=== PATIENT | male | born 1960 | race Caucasian/White ===

== ENCOUNTER 2021-08-27 05:59 | Inpatient (IN) ==
[2021-08-27] MEDS ORDERED: MIDAZOLAM 2 MG/2 ML VIAL ONE (06:36)
[2021-08-27] MEDS ORDERED: fentaNYL 100 MCG/2 ML VIAL ONE (06:36)
[2021-08-27] MEDS ORDERED: ROPIVACAINE 0.5% 30 ML VIAL ONE ×2 (06:37→12:32)
[2021-08-27] MEDS ORDERED: LIDOCAINE 2% 5 ML VIAL ONE ×2 (06:37→10:02)
[2021-08-27] MEDS ORDERED: GABAPENTIN 400 MG CAPSULE ONE (07:12)
[2021-08-27] MEDS ORDERED: ACETAMINOPHEN 500 MG TABLET ONE (07:13)
[2021-08-27] MEDS ORDERED: cefTRIAXone 1,000 MG VIAL ONE (07:13)
[2021-08-27] MEDS ORDERED: FAMOTIDINE 20 MG TABLET ONE (07:13)
[2021-08-27] MEDS: ALVIMOPAN 12 MG CAPSULE PO SCH ×3 (08:00→20:42)
[2021-08-27 08:01] LABS: Hematocrit 42.5 VOL% (42.0-52.0); Hemoglobin 14.6 GM/DL (14.0-18.0); Mean Corpuscular HGB Conc 34.4 GM/DL (32-36); Mean Corpuscular Volume 83.5 FL (87-102); Mean Platelet Volume 10.2 FL (9.6-12.0); Platelet Count 172 T/CUMM (130-400); Red Blood Count 5.09 MC/CUMM (3.8-5.5)
[2021-08-27 08:02] LABS: Basophils # 0.1 10*3/uL (0.0-0.2); Basophils % 0.8 % (0.0-0.8); Eosinophils # 0.2 10*3/uL (0.0-0.87); Eosinophils % 2.5 % (0.00-10.9); Immature Granulocytes % 0.3 %; Immature Granulocytes Absolute 0.03 #; Lymphocytes # 2.6 10*3/uL (1.4-4.0); Neutrophils % 59.4 % (38.7-73.9)
[2021-08-27 08:03] LABS: Albumin 3.6 G/DL (3.4-5.0); Bilirubin,Total 0.7 MG/DL (0.20-1.00); Calcium 9.3 MG/DL (8.5-10.1); Total Protein 7.3 G/DL (6.4-8.2)
[2021-08-27] MEDS ORDERED: GABAPENTIN 400 MG CAPSULE PO ONE (08:36)
[2021-08-27] MEDS ORDERED: FAMOTIDINE 20 MG TABLET PO ONE (08:36)
[2021-08-27] MEDS ORDERED: ACETAMINOPHEN 500 MG TABLET PO ONE (08:36)
[2021-08-27] MEDS ORDERED: LACTATED RINGERS 1,000 ML IV SCH (09:00)
[2021-08-27] MEDS ORDERED: PHENYLEPHRINE 10 MG/1 ML VIAL IV ONE (09:06)
[2021-08-27] MEDS ORDERED: GLYCOPYRROLATE 0.4 MG/2 ML VIAL ONE (10:02)
[2021-08-27] MEDS ORDERED: propofoL 200 MG/20 ML VIAL IV ONE (10:02)
[2021-08-27] MEDS ORDERED: DEXAMETHASONE 4 MG/1 ML VIAL ONE ×2 (10:02)
[2021-08-27] MEDS ORDERED: SUCCINYLCHOLINE 200 MG/10 ML VIAL ONE (10:02)
[2021-08-27] MEDS ORDERED: ONDANSETRON 4 MG/2 ML VIAL ONE (10:02)
[2021-08-27] MEDS ORDERED: SODIUM CHLORIDE 0.9% 100 ML IV ONE ×2 (10:02)
[2021-08-27] MEDS ORDERED: ROCURONIUM 50 MG/5 ML VIAL IV ONE (10:02)
[2021-08-27 10:10] LABS: Bilirubin,Urine Negative (Negative); Blood, Urine Moderate mg/dL (Negative); Glucose,Urine (UA) Negative (Negative); Ketones,Urine Negative (Negative); Mucus,Urine Occasional /LPF (Occasional); Nitrite,Urine Negative (Negative); Protein,Urine Negative; RBC,Urine 20 /HPF (0-4); Urine Appearance CLEAR (Clear); Urine Color Yellow (Yellow); Urine Specific Gravity 1.014 (1.001-1.035); Urine Urobilinogen < 2.0 EU/DL (0.2-1.0)
[2021-08-27] MEDS ORDERED: DESFLURANE 1 UNIT/15 MINUTE INH ONE ×2 (10:33→13:22)
[2021-08-27] MEDS ORDERED: SEVOFLURANE 1 UNIT/15 MINUTE INH ONE (10:33)
[2021-08-27] MEDS ORDERED: LACTATED RINGERS 1,000 ML IV ONE (10:40)
[2021-08-27] MEDS ORDERED: SUGAMMADEX 200 MG/2 ML VIAL IV ONE (12:40)
[2021-08-27] MEDS ORDERED: diphenhydrAMINE 50 MG/1 ML VIAL IV PRN ×2 (12:44→13:18)
[2021-08-27] MEDS ORDERED: PROMETHAZINE 25 MG/1 ML VIAL IM PRN (12:44)
[2021-08-27] MEDS ORDERED: MAGNESIUM HYDROXIDE SUSP 30 ML UDCUP PO PRN (12:44)
[2021-08-27] MEDS ORDERED: LACTULOSE 20 GM/30 ML UDCUP PO PRN (12:44)
[2021-08-27] MEDS ORDERED: ONDANSETRON 4 MG/2 ML VIAL IV PRN ×2 (12:44→13:18)
[2021-08-27] MEDS ORDERED: HYDROmorphone 2 MG/1 ML VIAL IV PRN ×2 (12:44→13:18)
[2021-08-27] MEDS ORDERED: HYDROmorphone 2 MG/1 ML VIAL ONE (12:47)
[2021-08-27] MEDS ORDERED: PROMETHAZINE INJ 25 MG in SODIUM CHLORIDE 0.9% 50 ML IV PRN (13:18)
[2021-08-27] MEDS ORDERED: MEPERIDINE 25 MG/1 ML VIAL IV PRN (13:18)
[2021-08-27] MEDS: SODIUM CHLORIDE 0.9% 1,000 ML IV SCH ×2 (14:00→20:43)
[2021-08-27] MEDS: ACETAMINOPHEN 325 MG TABLET PO SCH ×2 (14:00→20:42)
[2021-08-27 14:24] LABS: Osmolality,Calculated 283.4 MOS/KG (273-304); Potassium 3.6 MMOL/L (3.5-5.1)
[2021-08-27] MEDS: valACYclovir 500 MG TABLET PO SCH ×2 (14:33→20:42)
[2021-08-27 14:42] LABS: Basophils % 0.2 % (0.0-0.8); Eosinophils % 0.1 % (0.00-10.9); Hematocrit 41.5 VOL% (42.0-52.0); Hemoglobin 14.1 GM/DL (14.0-18.0); Immature Granulocytes % 0.4 %; Immature Granulocytes Absolute 0.06 #; Lymphocytes # 0.9 10*3/uL (1.4-4.0); Lymphocytes % 5.7 % (21.2-54.2); Monocytes % 3.3 % (1.7-12.7); Neutrophils % 90.3 % (38.7-73.9); Platelet Count 165 T/CUMM (130-400); Red Blood Count 4.94 MC/CUMM (3.8-5.5); Red Cell Distribution Width 13.2 % (9.3-17.3); White Blood Count 15.9 T/CUMM (4-12)
[2021-08-27] MEDS ORDERED: cefTRIAXone 1,000 MG in SODIUM CHLORIDE 0.9% 100 ML IV ONE (15:06)
[2021-08-27] MEDS ORDERED: PHENOL 1.4% THROAT SPRAY 177 ML BOTTLE PO PRN (17:25)
[2021-08-27] MEDS ORDERED: MAGNESIUM SULF RIDER 2 GM/50 ML PREMIX IV PRN (17:29)
[2021-08-27] MEDS ORDERED: MAGNESIUM SULF RIDER 4 GM/100 ML PREMIX IV PRN (17:29)
[2021-08-27] MEDS: DOCUSATE SODIUM 100 MG CAPSULE PO SCH (20:42)
[2021-08-27] MEDS: ATORVASTATIN 20 MG TABLET PO SCH (20:42)
[2021-08-27] MEDS: oxyCODONE/ACETAMINOPHEN 5-325 MG TABLET PO PRN (22:11)
[2021-08-28] MEDS: ACETAMINOPHEN 325 MG TABLET PO SCH ×4 (03:25→20:20)
[2021-08-28] MEDS: SODIUM CHLORIDE 0.9% 1,000 ML IV SCH (05:03)
[2021-08-28 05:40] LABS: Basophils % 0.1 % (0.0-0.8); Hematocrit 38.5 VOL% (42.0-52.0); Hemoglobin 12.9 GM/DL (14.0-18.0); Immature Granulocytes % 0.5 %; Immature Granulocytes Absolute 0.07 #; Lymphocytes # 1.4 10*3/uL (1.4-4.0); Lymphocytes % 10.4 % (21.2-54.2); Mean Corpuscular HGB Conc 33.5 GM/DL (32-36); Mean Corpuscular Volume 85.7 FL (87-102); Mean Platelet Volume 10.4 FL (9.6-12.0); Monocytes % 9.2 % (1.7-12.7); Neutrophils % 79.8 % (38.7-73.9); Platelet Count 166 T/CUMM (130-400); Red Blood Count 4.49 MC/CUMM (3.8-5.5); Red Cell Distribution Width 13.3 % (9.3-17.3); White Blood Count 13.1 T/CUMM (4-12)
[2021-08-28 06:06] LABS: Potassium 4.1 MMOL/L (3.5-5.1); Risk Ratio 2.2
[2021-08-28] MEDS: valACYclovir 500 MG TABLET PO SCH ×4 (07:56→20:23)
[2021-08-28] MEDS ORDERED: ALVIMOPAN 12 MG CAPSULE PO SCH (09:00)
[2021-08-28] MEDS: ALVIMOPAN 12 MG CAPSULE PO SCH ×2 (09:37→20:19)
[2021-08-28] MEDS: LOSARTAN 50 MG TABLET PO SCH (09:37)
[2021-08-28] MEDS: amLODIPine 10 MG TABLET PO SCH (09:37)
[2021-08-28] MEDS: DOCUSATE SODIUM 100 MG CAPSULE PO SCH ×2 (09:37→20:20)
[2021-08-28] MEDS: oxyCODONE/ACETAMINOPHEN 5-325 MG TABLET PO PRN (17:35)
[2021-08-28] MEDS: ATORVASTATIN 20 MG TABLET PO SCH (20:19)
[2021-08-29] MEDS: oxyCODONE/ACETAMINOPHEN 5-325 MG TABLET PO PRN ×2 (00:47→04:55)
[2021-08-29] MEDS: ACETAMINOPHEN 325 MG TABLET PO SCH ×2 (03:30→09:23)
[2021-08-29 05:59] LABS: Basophils # 0.1 10*3/uL (0.0-0.2); Basophils % 0.6 % (0.0-0.8); Eosinophils # 0.1 10*3/uL (0.0-0.87); Eosinophils % 0.7 % (0.00-10.9); Hematocrit 42.9 VOL% (42.0-52.0); Hemoglobin 14.3 GM/DL (14.0-18.0); Immature Granulocytes % 0.5 %; Immature Granulocytes Absolute 0.05 #; Lymphocytes # 2.5 10*3/uL (1.4-4.0); Lymphocytes % 23.1 % (21.2-54.2); Mean Corpuscular HGB Conc 33.3 GM/DL (32-36); Mean Corpuscular Volume 85.6 FL (87-102); Monocytes % 6.8 % (1.7-12.7); Neutrophils % 68.3 % (38.7-73.9); Platelet Count 204 T/CUMM (130-400); Red Blood Count 5.01 MC/CUMM (3.8-5.5); Red Cell Distribution Width 13.7 % (9.3-17.3); White Blood Count 10.9 T/CUMM (4-12)
[2021-08-29 06:24] LABS: Calcium 9.4 MG/DL (8.5-10.1); Osmolality,Calculated 279.7 MOS/KG (273-304); Potassium 3.9 MMOL/L (3.5-5.1)
[2021-08-29 09:22] VITALS: BP 131/65
[2021-08-29] MEDS: DOCUSATE SODIUM 100 MG CAPSULE PO SCH (09:23)
[2021-08-29] MEDS: ALVIMOPAN 12 MG CAPSULE PO SCH (09:23)
[2021-08-29] MEDS: LOSARTAN 50 MG TABLET PO SCH (09:24)
[2021-08-29] MEDS: amLODIPine 10 MG TABLET PO SCH (09:24)
[2021-08-29] MEDS: valACYclovir 500 MG TABLET PO SCH (09:24)
[2021-08-29] MEDS ORDERED: hydroCHLOROthiazide 12.5 MG CAPSULE PO SCH (14:05)
== END 2021-08-29 10:35 | disposition home or self-care (01) | DRG 658 ==
LOC: N.OR 05:59 → N.SDSINP 06:03 → N.2W 14:11
PROVIDERS: ADMIT Surgery; ATTEND Surgery